=== PATIENT | female | born 1940 | race Caucasian/White ===

== ENCOUNTER 2023-01-10 08:09 | Outpatient (CLI) | payer OTHER | END 2023-01-10 08:10 | disposition home or self-care (01) | LOC: CSHWCC 08:09 | PROVIDERS: ATTEND Physician Assistant | DX: L97.822 Non-pressure chronic ulcer of other part of left lower leg with fat layer exposed (principal); L98.491 Non-pressure chronic ulcer of skin of other sites limited to breakdown of skin; G30.9 Alzheimer's disease, unspecified | CPT/HCPCS: 97597; 97598; 99215; G0463 ==

== ENCOUNTER 2023-01-28 11:22 | Outpatient (CLI) | payer OTHER | END 2023-01-28 11:23 | disposition home or self-care (01) | LOC: CSHWCC 11:22 | PROVIDERS: ATTEND Physician Assistant | DX: L97.822 Non-pressure chronic ulcer of other part of left lower leg with fat layer exposed (principal); L98.491 Non-pressure chronic ulcer of skin of other sites limited to breakdown of skin; G30.9 Alzheimer's disease, unspecified | CPT/HCPCS: 99212; G0463 ==

== ENCOUNTER 2023-03-13 10:55 | Outpatient (CLI) | payer OTHER | END 2023-03-13 10:56 | disposition home or self-care (01) | LOC: CSHWCC 10:55 | PROVIDERS: ATTEND Preventive Medicine Undersea and Hyperbaric Medicine | DX: L97.822 Non-pressure chronic ulcer of other part of left lower leg with fat layer exposed (principal); G30.9 Alzheimer's disease, unspecified; L98.491 Non-pressure chronic ulcer of skin of other sites limited to breakdown of skin | CPT/HCPCS: 99213; G0463 ==

== ENCOUNTER 2023-03-31 13:11 | Outpatient (CLI) | payer MEDICARE | END 2023-03-31 13:12 | disposition home or self-care (01) | LOC: CSHWCC 13:11 | PROVIDERS: ATTEND Nurse Practitioner Family | DX: L97.822 Non-pressure chronic ulcer of other part of left lower leg with fat layer exposed (principal); L98.491 Non-pressure chronic ulcer of skin of other sites limited to breakdown of skin; G30.9 Alzheimer's disease, unspecified | CPT/HCPCS: 97597 ==

== ENCOUNTER 2023-04-07 14:12 | Outpatient (CLI) | payer OTHER | END 2023-04-07 14:13 | disposition home or self-care (01) | LOC: CSHWCC 14:12 | PROVIDERS: ATTEND Nurse Practitioner Family | DX: L97.822 Non-pressure chronic ulcer of other part of left lower leg with fat layer exposed (principal); L98.491 Non-pressure chronic ulcer of skin of other sites limited to breakdown of skin; G30.9 Alzheimer's disease, unspecified | CPT/HCPCS: 99212; G0463 ==